=== PATIENT | female | born 1950 | race Caucasian/White ===

== ENCOUNTER 2016-11-20 17:49 | Emergency (ER) | payer MEDICARE, OTHER ==
[2016-11-20 18:22] LABS: BASOPHILS 0.3 % (0.0-2.0); MEAN CORPUSCULAR HEMOGLOBIN 29.3 pg (29.0-35.0)
[2016-11-20] MEDS ORDERED: NITROGLYCERIN 0.4 MG TAB.SUBL SUBLINGUAL ONE ×3 (18:22→18:56)
[2016-11-20 18:40] LABS: EOSINOPHILS 1.9 % (0.0-6.0); EOSINOPHILS# 0.2 X 10^3uL (0.0-0.4); HEMATOCRIT 41.4 % (36.0-48.0); HEMOGLOBIN 13.9 g/dL (12.0-16.0); LYMPHOCYTES# 2.5 X 10^3uL (0.8-3.8); MEAN CELL VOLUME 87.4 fL (84.0-102.0); MEAN CORPUS. HGB CONCENTRATION 33.5 g/dL (32.0-36.0); MEAN PLATELET VOLUME 9.7 fL (7.4-10.4); MONOCYTES 7.3 % (2.0-10.0); MONOCYTES# 0.8 X 10^3uL (0.2-1.0); NEUTROPHILS 66.5 % (54.0-75.0); NEUTROPHILS# 6.9 X 10^3uL (2.6-6.7); RED BLOOD COUNT 4.74 X 10^6uL (4.20-6.10); RED CELL DISTRIBUTION WIDTH 13.5 % (11.5-14.5); WHITE BLOOD COUNT 10.4 X 10^3uL (3.9-10.7)
[2016-11-20 18:48] LABS: CALCIUM 9.9 mg/dL (8.4-10.2); CREATININE 1.3 mg/dL (0.5-1.0); POTASSIUM 3.8 mmol/L (3.5-5.1)
[2016-11-20 19:05] LABS: TROPONIN I 0.103 ng/mL (0.00-0.034)
[2016-11-20] MEDS ORDERED: MORPHINE SULFATE 2 MG/ML SYR ONE (19:06)
[2016-11-20] MEDS ORDERED: ONDANSETRON HCL 4 MG/2 ML VIAL ONE (19:07)
[2016-11-20] MEDS ORDERED: ENOXAPARIN SODIUM 60 MG/0.6 ML SYR SUBCUT ONE (19:36)
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
== END 2016-11-20 20:02 | disposition short-term general hospital (02) ==
LOC: ER 17:49
DX: I21.4 Non-ST elevation (NSTEMI) myocardial infarction (principal); R11.0 Nausea; R42 Dizziness and giddiness; I10 Essential (primary) hypertension; Z79.82 Long term (current) use of aspirin; Z79.899 Other long term (current) drug therapy; Z89.611 Acquired absence of right leg above knee; Z74.3 Need for continuous supervision
CPT/HCPCS: 71010; 80048; 83735; 84484; 85025; 93005; 93010; 96361; 96372; 96374; 96375; 99285; 99291; A0425; A0427; J1650; J2270; J2405

== ENCOUNTER 2016-11-23 14:14 | Emergency (ER) | payer MEDICARE, OTHER ==
[2016-11-23 15:06] LABS: BASOPHILS 0.2 % (0.0-2.0); EOSINOPHILS# 0.1 X 10^3uL (0.0-0.4); HEMOGLOBIN 14.1 g/dL (12.0-16.0); LYMPHOCYTES 26.7 % (20.0-40.0); LYMPHOCYTES# 2.3 X 10^3uL (0.8-3.8); MEAN CELL VOLUME 87.2 fL (84.0-102.0); MEAN CORPUS. HGB CONCENTRATION 33.6 g/dL (32.0-36.0); MEAN CORPUSCULAR HEMOGLOBIN 29.3 pg (29.0-35.0); MEAN PLATELET VOLUME 9.4 fL (7.4-10.4); MONOCYTES 6.5 % (2.0-10.0); MONOCYTES# 0.6 X 10^3uL (0.2-1.0); NEUTROPHILS 65.6 % (54.0-75.0); NEUTROPHILS# 5.6 X 10^3uL (2.6-6.7); PLATELET COUNT 249 X 10^3uL (130-440); RED BLOOD COUNT 4.82 X 10^6uL (4.20-6.10); RED CELL DISTRIBUTION WIDTH 13.7 % (11.5-14.5); WHITE BLOOD COUNT 8.6 X 10^3uL (3.9-10.7)
[2016-11-23 15:09] LABS: BLOOD UREA NITROGEN 19 mg/dL (7-17); CHLORIDE 105 mmol/L (98-107); CREATININE 0.9 mg/dL (0.5-1.0); EST GLOMERULAR FILTRATION RATE > 60 mL/min; GLUCOSE 87 mg/dL (70-100); POTASSIUM 3.7 mmol/L (3.5-5.1); SODIUM 139 mmol/L (137-145)
[2016-11-23 15:24] LABS: TROPONIN I 0.122 ng/mL (0.00-0.034)
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
== END 2016-11-23 16:40 | disposition home or self-care (01) ==
LOC: ER 14:14
DX: R07.89 Other chest pain (principal); R11.0 Nausea; I10 Essential (primary) hypertension; Z79.82 Long term (current) use of aspirin; Z79.899 Other long term (current) drug therapy
CPT/HCPCS: 71010; 80048; 83735; 84484; 85025; 93005; 99284